=== PATIENT | female | born 1965 | race Caucasian/White ===

== ENCOUNTER 2020-10-19 21:22 | Emergency (ER) | payer SELFPAY ==
[~2020-10-19] VITALS: Ht 149.9 cm; Wt 52.2 kg
[2020-10-19 21:24] VITALS: BP 174/99
[2020-10-19] MEDS ORDERED: HYDROcodone-ACET 10/325MG TAB PO ONE (23:15)
[2020-10-19] MEDS ORDERED: ONDANSETRON ODT 4 MG TAB PO ONE (23:15)
== END 2020-10-20 00:32 | disposition home or self-care (01) ==
LOC: ER 21:22
DX: S42.031A Displaced fracture of lateral end of right clavicle, initial encounter for closed fracture (principal); F17.210 Nicotine dependence, cigarettes, uncomplicated; Z88.0 Allergy status to penicillin; W19.XXXA Unspecified fall, initial encounter; Y93.89 Activity, other specified; Y92.89 Other specified places as the place of occurrence of the external cause; Y99.8 Other external cause status
CPT/HCPCS: 73030; 99283; Q0162